=== PATIENT | male | born 1960 | race Caucasian/White ===

== ENCOUNTER → 2022-09-24 10:42 | Outpatient (CLI) | payer SELFPAY ==
[2022-09-24 11:06] LABS: Basophils % 0.5 % (0.1-2.0); Eosinophils # 0.2 K/mm3 (0.0-0.4); Hematocrit 46.7 % (42.0-52.0); Hemoglobin 14.9 g/dL (14.1-18.0); Lymphocytes # 2.4 K/mm3 (0.7-4.5); Lymphocytes % 30.1 % (10-50); Mean Corpuscular HGB Conc 31.9 g/dL (31.8-35.4); Mean Corpuscular Hemoglobin 30.3 pg (27.0-31.2); Mean Corpuscular Volume 95.1 fl (80-94); Monocytes # 0.4 K/mm3 (0.1-1.0); Monocytes % 5.1 % (1.7-9.3); Neutrophils # 4.9 K/mm3 (1.8-7.8); Neutrophils % 62.5 % (37.0-80.0); Platelet Count 229 K/mm3 (142-424); Red Blood Count 4.91 M/mm3 (4.60-6.20); Red Cell Distribution Width 14.3 % (11.5-17.5); White Blood Count 7.9 K/mm3 (4.8-10.8)
[2022-09-24 11:54] LABS: Erythrocyte Sedimentation Rate 48 mm/hr (0-20)
[2022-09-24 12:08] LABS: Alanine Aminotransferase 22 U/L (12-78); Albumin Level 3.9 g/dl (3.5-5.0); Albumin/Globulin Ratio 1.4 (1.1-1.8); Alkaline Phosphatase 108 U/L (38-126); Anion Gap 10.2 mEq/L (5-15); Aspartate Amino Transferase 21 U/L (17-59); Bilirubin,Total 0.4 mg/dl (0.2-1.3); Blood Urea Nitrogen 15 mg/dl (9-20); Calcium 8.8 mg/dl (8.4-10.2); Carbon Dioxide 26 mmol/L (22.0-30.0); Chloride 105 mmol/L (98-107); Estimated Glomerular Filt Rate 98 ml/min (>60); GFR (African American) 119 ML/MIN (>60); Globulin 2.8 g/dL (1.3-3.2); Glucose 149 mg/dl (74-100); Potassium 4.2 mmoL/L (3.5-5.1); Sodium 137 mmol/L (136-145); Total Protein,Serum 6.7 g/dl (6.3-8.2)
[2022-09-24 12:13] LABS: C-Reactive Protein 8.2 mg/L (0-4)
== END ==
PROVIDERS: PCP Family Medicine; Visit Provider Internal Medicine Rheumatology
DX: M05.8 Other rheumatoid arthritis with rheumatoid factor (principal); R53.83 Other fatigue; Z68.25 Body mass index [BMI] 25.0-25.9, adult; Z79.899 Other long term (current) drug therapy
CPT/HCPCS: 36415; 80053; 85025; 85651; 86140

== ENCOUNTER → 2022-10-26 07:26 | Outpatient (CLI) | payer OTHER, SELFPAY ==
[2022-10-26 08:16] LABS: Basophils % 0.4 % (0.1-2.0); Eosinophils # 0.2 K/mm3 (0.0-0.4); Eosinophils % 2.4 % (0.1-12.0); Hemoglobin 14.4 g/dL (14.1-18.0); Lymphocytes # 3.5 K/mm3 (0.7-4.5); Lymphocytes % 36.4 % (10-50); Mean Corpuscular HGB Conc 32.1 g/dL (31.8-35.4); Mean Corpuscular Hemoglobin 30.8 pg (27.0-31.2); Mean Corpuscular Volume 96.1 fl (80-94); Monocytes # 0.7 K/mm3 (0.1-1.0); Monocytes % 6.7 % (1.7-9.3); Neutrophils # 5.3 K/mm3 (1.8-7.8); Neutrophils % 54.1 % (37.0-80.0); Platelet Count 220 K/mm3 (142-424); Red Blood Count 4.68 M/mm3 (4.60-6.20); Red Cell Distribution Width 15.2 % (11.5-17.5); White Blood Count 9.7 K/mm3 (4.8-10.8)
[2022-10-26 08:29] LABS: Chloride 103 mmol/L (98-107); Potassium 4.2 mmoL/L (3.5-5.1); Sodium 138 mmol/L (136-145)
[2022-10-26 08:32] LABS: Alanine Aminotransferase 20 U/L (12-78); Albumin Level 3.9 g/dl (3.5-5.0); Albumin/Globulin Ratio 1.3 (1.1-1.8); Alkaline Phosphatase 102 U/L (38-126); Anion Gap 12.2 mEq/L (5-15); Aspartate Amino Transferase 18 U/L (17-59); Bilirubin,Total 0.4 mg/dl (0.2-1.3); Blood Urea Nitrogen 19 mg/dl (9-20); Calcium 9.1 mg/dl (8.4-10.2); Carbon Dioxide 27 mmol/L (22.0-30.0); Estimated Glomerular Filt Rate 98 ml/min (>60); GFR (African American) 119 ML/MIN (>60); Glucose 90 mg/dl (74-100); Total Protein,Serum 6.9 g/dl (6.3-8.2)
[2022-10-26 08:38] LABS: C-Reactive Protein 15.7 mg/L (0-4)
[2022-10-26 08:46] LABS: Erythrocyte Sedimentation Rate 18 mm/hr (0-20)
== END ==
PROVIDERS: PCP Family Medicine; Visit Provider Internal Medicine Rheumatology
DX: M05.8 Other rheumatoid arthritis with rheumatoid factor (principal); R53.83 Other fatigue; Z68.25 Body mass index [BMI] 25.0-25.9, adult; Z79.899 Other long term (current) drug therapy
CPT/HCPCS: 36415; 80053; 85025; 85651; 86140

== ENCOUNTER → 2022-11-26 07:26 | Outpatient (CLI) | payer OTHER, SELFPAY ==
[2022-11-26 09:49] LABS: Basophils % 0.3 % (0.1-2.0); Eosinophils # 0.2 K/mm3 (0.0-0.4); Eosinophils % 1.9 % (0.1-12.0); Hematocrit 47.7 % (42.0-52.0); Hemoglobin 15.3 g/dL (14.1-18.0); Lymphocytes # 3.2 K/mm3 (0.7-4.5); Lymphocytes % 26.9 % (10-50); Mean Corpuscular HGB Conc 32.1 g/dL (31.8-35.4); Mean Corpuscular Hemoglobin 31.5 pg (27.0-31.2); Mean Corpuscular Volume 97.9 fl (80-94); Mean Platelet Volume 7.8 fl (7.4-10.4); Monocytes # 0.7 K/mm3 (0.1-1.0); Monocytes % 5.9 % (1.7-9.3); Neutrophils # 7.7 K/mm3 (1.8-7.8); Platelet Count 269 K/mm3 (142-424); Red Blood Count 4.87 M/mm3 (4.60-6.20); Red Cell Distribution Width 14.7 % (11.5-17.5); White Blood Count 11.9 K/mm3 (4.8-10.8)
[2022-11-26 10:05] LABS: Chloride 99 mmol/L (98-107); Sodium 138 mmol/L (136-145)
[2022-11-26 10:07] LABS: Alanine Aminotransferase 23 U/L (12-78); Aspartate Amino Transferase 24 U/L (17-59); Blood Urea Nitrogen 14 mg/dl (9-20); Estimated Glomerular Filt Rate 137 ml/min (>60); GFR (African American) 166 ML/MIN (>60)
[2022-11-26 10:08] LABS: Albumin Level 3.9 g/dl (3.5-5.0); Albumin/Globulin Ratio 1.2 (1.1-1.8); Alkaline Phosphatase 107 U/L (38-126); Bilirubin,Total 0.3 mg/dl (0.2-1.3); Calcium 9.5 mg/dl (8.4-10.2); Carbon Dioxide 25 mmol/L (22.0-30.0); Globulin 3.2 g/dL (1.3-3.2); Glucose 77 mg/dl (74-100); Total Protein,Serum 7.1 g/dl (6.3-8.2)
== END ==
PROVIDERS: PCP Family Medicine; Visit Provider Internal Medicine Rheumatology
DX: M05.8 Other rheumatoid arthritis with rheumatoid factor (principal); R53.83 Other fatigue; E66.3 Overweight; Z68.25 Body mass index [BMI] 25.0-25.9, adult; Z79.899 Other long term (current) drug therapy
CPT/HCPCS: 36415; 80053; 85025; 86140

== ENCOUNTER → 2022-12-25 07:35 | Outpatient (CLI) | payer OTHER, SELFPAY ==
[2022-12-25 08:56] LABS: Basophils % 0.4 % (0.1-2.0); Eosinophils # 0.2 K/mm3 (0.0-0.4); Eosinophils % 1.7 % (0.1-12.0); Hematocrit 46.9 % (42.0-52.0); Hemoglobin 15.4 g/dL (14.1-18.0); Lymphocytes # 3.5 K/mm3 (0.7-4.5); Lymphocytes % 37.3 % (10-50); Mean Corpuscular HGB Conc 32.9 g/dL (31.8-35.4); Mean Corpuscular Hemoglobin 30.9 pg (27.0-31.2); Mean Corpuscular Volume 94.2 fl (80-94); Mean Platelet Volume 8.1 fl (7.4-10.4); Monocytes # 0.6 K/mm3 (0.1-1.0); Monocytes % 6.4 % (1.7-9.3); Neutrophils # 5.1 K/mm3 (1.8-7.8); Neutrophils % 54.3 % (37.0-80.0); Platelet Count 246 K/mm3 (142-424); Red Blood Count 4.98 M/mm3 (4.60-6.20); Red Cell Distribution Width 14.3 % (11.5-17.5); White Blood Count 9.4 K/mm3 (4.8-10.8)
[2022-12-25 09:06] LABS: Chloride 103 mmol/L (98-107); Potassium 3.8 mmoL/L (3.5-5.1); Sodium 140 mmol/L (136-145)
[2022-12-25 09:09] LABS: Alanine Aminotransferase 25 U/L (12-78); Albumin/Globulin Ratio 1.3 (1.1-1.8); Alkaline Phosphatase 96 U/L (38-126); Anion Gap 16.8 mEq/L (5-15); Aspartate Amino Transferase 23 U/L (17-59); Bilirubin,Total 0.4 mg/dl (0.2-1.3); Blood Urea Nitrogen 15 mg/dl (9-20); Carbon Dioxide 24 mmol/L (22.0-30.0); Estimated Glomerular Filt Rate 115 ml/min (>60); GFR (African American) 139 ML/MIN (>60)
[2022-12-25 09:10] LABS: Calcium 8.9 mg/dl (8.4-10.2); Glucose 113 mg/dl (74-100)
[2022-12-25 10:10] LABS: C-Reactive Protein 3.3 mg/L (0-4)
[2022-12-25 10:49] LABS: Erythrocyte Sedimentation Rate 69 mm/hr (0-20)
== END ==
PROVIDERS: PCP Family Medicine; Visit Provider Internal Medicine Rheumatology
DX: M05.8 Other rheumatoid arthritis with rheumatoid factor (principal); R53.83 Other fatigue; Z68.25 Body mass index [BMI] 25.0-25.9, adult; Z79.899 Other long term (current) drug therapy
CPT/HCPCS: 36415; 80053; 85025; 85651; 86140

== ENCOUNTER → 2023-03-10 08:09 | Outpatient (CLI) | payer OTHER, SELFPAY ==
[2023-03-10 09:09] LABS: Alanine Aminotransferase 39 U/L (12-78); Albumin Level 4.1 g/dl (3.5-5.0); Albumin/Globulin Ratio 1.3 (1.1-1.8); Alkaline Phosphatase 102 U/L (38-126); Anion Gap 13.8 mEq/L (5-15); Aspartate Amino Transferase 28 U/L (17-59); Bilirubin,Total 0.5 mg/dl (0.2-1.3); Blood Urea Nitrogen 18 mg/dl (9-20); Calcium 9.3 mg/dl (8.4-10.2); Carbon Dioxide 22 mmol/L (22.0-30.0); Chloride 109 mmol/L (98-107); Chol/HDL Ratio 1.8 (1-3.5); Cholesterol 107 mg/dl (140-200); Estimated Glomerular Filt Rate 114 ml/min (>60); GFR (African American) 138 ML/MIN (>60); Globulin 3.2 g/dL (1.3-3.2); Glucose 90 mg/dl (74-100); HDL Cholesterol 61 mg/dl (40-60); Potassium 3.8 mmoL/L (3.5-5.1); Sodium 141 mmol/L (136-145); Total Protein,Serum 7.3 g/dl (6.3-8.2); Triglycerides 96 mg/dl (30-150); VLDL Cholesterol 19 mg/dL (0-40)
[2023-03-10 09:20] LABS: Direct LDL Cholesterol 31.88 mg/dL (100-129)
[2023-03-10 09:49] LABS: Hematocrit 46.7 % (42.0-52.0); Hemoglobin 15.2 g/dL (14.1-18.0); Mean Corpuscular HGB Conc 32.6 g/dL (31.8-35.4); Mean Corpuscular Hemoglobin 31.6 pg (27.0-31.2); Mean Corpuscular Volume 96.9 fl (80-94); Platelet Count 197 K/mm3 (142-424); Red Blood Count 4.83 M/mm3 (4.60-6.20); Red Cell Distribution Width 14.1 % (11.5-17.5); White Blood Count 8.7 K/mm3 (4.8-10.8)
== END ==
PROVIDERS: PCP Family Medicine; Visit Provider Physician Assistant
DX: I25.10 Atherosclerotic heart disease of native coronary artery without angina pectoris (principal); E78.5 Hyperlipidemia, unspecified
CPT/HCPCS: 36415; 80053; 80061; 85014; 85018; 85048; 85049

== ENCOUNTER → 2023-04-01 00:23 | Outpatient (CLI) | payer OTHER, SELFPAY ==
[2023-04-01 00:57] LABS: Basophils # 0.1 K/mm3 (0-0.2); Basophils % 0.6 % (0.1-2.0); Eosinophils # 0.2 K/mm3 (0.0-0.4); Eosinophils % 1.8 % (0.1-12.0); Hematocrit 49.3 % (42.0-52.0); Hemoglobin 15.8 g/dL (14.1-18.0); Lymphocytes # 4.2 K/mm3 (0.7-4.5); Lymphocytes % 37.4 % (10-50); Mean Corpuscular Hemoglobin 31.7 pg (27.0-31.2); Mean Corpuscular Volume 99.1 fl (80-94); Mean Platelet Volume 7.9 fl (7.4-10.4); Monocytes # 0.9 K/mm3 (0.1-1.0); Monocytes % 7.9 % (1.7-9.3); Neutrophils # 5.9 K/mm3 (1.8-7.8); Neutrophils % 52.3 % (37.0-80.0); Platelet Count 231 K/mm3 (142-424); Red Blood Count 4.98 M/mm3 (4.60-6.20); Red Cell Distribution Width 14.3 % (11.5-17.5); White Blood Count 11.2 K/mm3 (4.8-10.8)
[2023-04-01 01:03] LABS: Chloride 109 mmol/L (98-107); Potassium 3.8 mmoL/L (3.5-5.1); Sodium 141 mmol/L (136-145)
[2023-04-01 01:05] LABS: Alanine Aminotransferase 33 U/L (12-78); Blood Urea Nitrogen 23 mg/dl (9-20); Estimated Glomerular Filt Rate 114 ml/min (>60); GFR (African American) 138 ML/MIN (>60)
[2023-04-01 01:06] LABS: Albumin Level 4.1 g/dl (3.5-5.0); Albumin/Globulin Ratio 1.2 (1.1-1.8); Alkaline Phosphatase 104 U/L (38-126); Anion Gap 15.8 mEq/L (5-15); Aspartate Amino Transferase 26 U/L (17-59); Bilirubin,Total 0.2 mg/dl (0.2-1.3); Calcium 8.9 mg/dl (8.4-10.2); Carbon Dioxide 20 mmol/L (22.0-30.0); Globulin 3.5 g/dL (1.3-3.2); Glucose 134 mg/dl (74-100); Total Protein,Serum 7.6 g/dl (6.3-8.2)
[2023-04-01 01:49] LABS: Erythrocyte Sedimentation Rate 15 mm/hr (0-20)
[2023-04-02 13:09] LABS: C-Reactive Protein 1.7 mg/L (0-4)
== END ==
LOC: LAB.DROPOF 00:24
PROVIDERS: PCP Family Medicine; Visit Provider Nurse Practitioner Women's Health
DX: D84.821 Immunodeficiency due to drugs (principal); M05.8 Other rheumatoid arthritis with rheumatoid factor; Z79.52 Long term (current) use of systemic steroids; Z79.899 Other long term (current) drug therapy
CPT/HCPCS: 80053; 85025; 85651; 86140

== ENCOUNTER 2023-05-07 16:40 | Inpatient (IN) | payer OTHER, SELFPAY ==
[2023-05-07] VITALS (9 sets, daily range): BP systolic 102–146; BP diastolic 51–86; PULSE 108–125; RESP 22–34; TEMP 37.3–37.8; O2SAT 90–95; BMI 26.9; BMI 27.0
--- NOTE | 2023-05-07 16:52 | ECG_ITS ---
APPROVED REPORT Exam: Resting ECG HR:124 bpm ECG Measurements Heart Rate 124 AXES MS 155 P 71 QRSd 90 QRS -90 QT 309 T 57 QTc 383 Conclusion SINUS TACHYCARDIA LOW QRS VOLTAGE IN EXTREMITY LEADS [QRS DEFLECTION < 0.5 mV IN LIMB LEADS] PATTERN CONSISTENT WITH PULMONARY DISEASE LEFT ANTERIOR FASCICULAR BLOCK [QRS AXIS <= -45, QR IN I, RS IN II] INFERIOR MYOCARDIAL INFARCTION , OF INDETERMINATE AGE [40+ ms Q WAVE AND/OR ST/T ABNORMALITY IN II/aVF] ABNORMAL ECG UNCONFIRMED REPORT Electronically signed by : Sherman Alejandra MD 05/08/2023 16:53:51
--- NOTE | 2023-05-07 17:03 | XR_ITS ---
PROCEDURE INFORMATION: Exam: XR Chest Exam date and time: 05/07/2023 5:16 PM Age: 62 years old Clinical indication: Cough and wheezing; Additional info: SOA. Smoker (unknown for how long) TECHNIQUE: Imaging protocol: Radiologic exam of the chest. Views: 2 views. COMPARISON: No relevant prior studies available. FINDINGS: Lungs: Dense consolidation is present in the right lower lobe. Left lung has no airspace consolidation. Pleural spaces: No pleural effusion. No pneumothorax. Heart/Mediastinum: Small hiatal hernia. Bones/joints: No fractures or bone lesions. IMPRESSION: Right lower lobe pneumonia. Consider postobstructive pneumonia. At a minimum, chest x-ray follow-up is recommended within 8 weeks to document resolution.
--- NOTE | 2023-05-07 17:10 | HMH.EDGENADL ---
Discharge Plan Disposition Patient Disposition: Admitted Chief Complaint: Shortness of Breath/Dyspnea Prescriptions Prescriptions: No Action allopurinol 300 mg tablet 300 mg PO rosuvastatin 20 mg tablet 20 mg PO metoprolol succinate 25 mg tablet extended release 24 hr PO propylthiouracil 50 mg tablet 50 mg PO diclofenac sodium 75 mg tablet,delayed release (DR/EC) 75 mg PO losartan 50 mg tablet 50 mg PO Patient Comments: TAKE 1 TABLET BY MOUTH ONCE DAILY clopidogrel 75 mg tablet 75 mg PO Patient Comments: TAKE 1 TABLET BY MOUTH ONCE DAILY aspirin 81 mg tablet,delayed release (DR/EC) 81 mg PO DAILY omeprazole 40 mg capsule,delayed release(DR/EC) 40 mg PO DAILY paroxetine HCl 20 mg tablet 20 mg PO DAILY trazodone 50 mg tablet 50 mg PO DAILY Referrals Follow up/Referrals: Zeus Aguilar [Primary Care Provider] - See instructions Clinical Impressions Clinical Impression: Sepsis due to pneumonia, Mediastinal adenopathy, Hernia, hiatal Discharge ED Provider: Curtis Copeland General Adult HPI General Chief complaint: Shortness of Breath/Dyspnea Stated complaint: weak, SOA,cough Time Seen by Provider: 05/07/23 16:50 History of Present Illness HPI narrative: Patient is a 62-year-old male with past medical history of COPD not on chronic oxygen who presents emergency department for evaluation of shortness of breath. History is obtained by patient at bedside. Patient was diagnosed with the flu on Wednesday and was prescribed Tamiflu for which she is compliant. Due to worsening shortness of breath and cough he presents here for continued evaluation. No other acute complaints at this time. Related Data Home Medications Medication Instructions Recorded Confirmed allopurinol 300 mg tablet 300 mg PO 07/21/22 07/21/22 aspirin 81 mg tablet,delayed 81 mg PO DAILY 07/21/22 07/21/22 release clopidogrel 75 mg tablet 75 mg PO 07/21/22 07/21/22 diclofenac sodium 75 mg 75 mg PO 07/21/22 07/21/22 tablet,delayed release losartan 50 mg tablet 50 mg PO 07/21/22 07/21/22 metoprolol succinate 25 mg tab PO 07/21/22 07/21/22 tablet,extended release 24 hr omeprazole 40 mg capsule,delayed 40 mg PO DAILY 07/21/22 07/21/22 release paroxetine HCl 20 mg tablet 20 mg PO DAILY 07/21/22 07/21/22 propylthiouracil 50 mg tablet 50 mg PO 07/21/22 07/21/22 rosuvastatin 20 mg tablet 20 mg PO 07/21/22 07/21/22 trazodone 50 mg tablet 50 mg PO DAILY 07/21/22 07/21/22 Allergies Allergy/AdvReac Type Severity Reaction Status Date / Time No Known Allergies Allergy Verified 07/21/22 14:58 [facility] Disclaimer: The information contained in this section may have been updated after the patient was seen, as this information can be updated by other users. Surgical History (Updated 07/21/22 @ 15:02 by FABIOLA Marie) History of colonoscopy History of heart artery stent Social History (Updated 07/21/22 @ 15:02 by Ani Lo [facility]) Smoking Status: Current every day smoker alcohol intake: never substance use type: denies use current occupational status: retired Travel in the last 8 weeks: None ROS Obtained: Yes Systems reviewed as appropriate & no additional complaints except as documented Physical Exam General General appearance: alert and in no apparent distress Head Head exam: atraumatic and normocephalic Eye Eye exam: Present PERRL and EOMI ENT ENT exam: Present mucous membranes moist Neck Neck exam: Present normal inspection Chest Chest inspection: Present normal inspection and symmetric chest wall rise Respiratory Respiratory exam: Present respiratory distress, wheezes, prolonged expiratory phase and other (Tachypnea) Cardiovascular Cardiovascular exam: Present normal rhythm and tachycardia Abdominal Exam Abdominal exam: Present soft; Absent tenderness Extremities Exam Extremities exam:
[2023-05-07 17:18] LABS: Basophils % 0.4 % (0.1-2.0); Eosinophils % 0.4 % (0.1-12.0); Hemoglobin 17.1 g/dL (14.1-18.0); Lymphocytes # 0.9 K/mm3 (0.7-4.5); Lymphocytes % 12.1 % (10-50); Mean Corpuscular HGB Conc 35.7 g/dL (31.8-35.4); Mean Corpuscular Hemoglobin 33.7 pg (27.0-31.2); Mean Corpuscular Volume 94.5 fl (80-94); Mean Platelet Volume 9.7 fl (7.4-10.4); Monocytes # 0.2 K/mm3 (0.1-1.0); Monocytes % 3.3 % (1.7-9.3); Neutrophils # 6.1 K/mm3 (1.8-7.8); Neutrophils % 83.9 % (37.0-80.0); Platelet Count 171 K/mm3 (142-424); Red Blood Count 5.09 M/mm3 (4.60-6.20); Red Cell Distribution Width 14.3 % (11.5-17.5); White Blood Count 7.3 K/mm3 (4.8-10.8)
[2023-05-07 17:30] LABS: Alanine Aminotransferase 117 U/L (12-78); Albumin Level 3.7 g/dl (3.5-5.0); Albumin/Globulin Ratio 0.9 (1.1-1.8); Alkaline Phosphatase 72 U/L (38-126); Anion Gap 16.9 mEq/L (5-15); Aspartate Amino Transferase 152 U/L (17-59); Bilirubin,Total 0.7 mg/dl (0.2-1.3); Blood Urea Nitrogen 27 mg/dl (9-20); Calcium 8.6 mg/dl (8.4-10.2); Carbon Dioxide 19 mmol/L (22.0-30.0); Chloride 97 mmol/L (98-107); Creatinine Clearance Estimated 89 mL/min (50-200); Estimated Glomerular Filt Rate 86 ml/min (>60); GFR (African American) 103 ML/MIN (>60); Globulin 4.2 g/dL (1.3-3.2); Glucose 128 mg/dl (74-100); Potassium 3.9 mmoL/L (3.5-5.1); Sodium 129 mmol/L (136-145); Total Protein,Serum 7.9 g/dl (6.3-8.2)
[2023-05-07 17:35] LABS: D-Dimer 4.04 ug/mL (0.0-0.5)
[2023-05-07 17:44] LABS: Troponin I 0.02 ng/ml (0.00-0.034)
[2023-05-07 17:58] LABS: T4 (Thyroxine) 7.1 ug/dl (5.53-11.0)
--- NOTE | 2023-05-07 17:59 | CT_ITS ---
PROCEDURE INFORMATION: Exam: CTA Chest With Contrast Exam date and time: 05/07/2023 6:31 PM Age: 62 years old Clinical indication: Shortness of breath; Additional info: Rll consolidation, flu +, tachy, dimer up TECHNIQUE: Imaging protocol: Computed tomographic angiography of the chest with contrast. Exam focused on the arteries. 3D rendering (Not supervised by radiologist): MIP and/or 3D reconstructed images were created by the technologist. Radiation optimization: All CT scans at this facility use at least one of these dose optimization techniques: automated exposure control; mA and/or kV adjustment per patient size (includes targeted exams where dose is matched to clinical indication); or iterative reconstruction. Contrast material: ISOVUE; Contrast volume: 70 ml; Contrast route: INTRAVENOUS (IV); REPORTING DATA: Count of CT and Cardiac NM exams in prior 12 months: This patient has received 0 known CTs and 0 known cardiac nuclear medicine studies in the 12 months prior to the current study. COMPARISON: CR XR CHEST 2V 05/07/2023 5:16 PM FINDINGS: Pulmonary arteries: No pulmonary artery embolism identified. Pulmonary artery evaluation is limited in the lung bases from motion. Main pulmonary artery is borderline dilated measuring 3.1 cm in diameter. Aorta: No aortic aneurysm. No aortic dissection or evidence of acute aortic abnormality. Mild calcified plaque along the included upper abdominal aorta. Lungs: Advanced upper lung predominant pulmonary emphysema. Extensive airspace opacities in the right lower lobe and airspace opacities in the posterior right upper lobe. Mild non-specific ground-glass opacity in the lingula. Scattered small calcified granulomata and right middle lobe 4 mm noncalcified nodule. Pleural spaces: Trivial pleural fluid on the right. No pneumothorax. Heart: Heart size is normal. No pericardial effusion. Coronary arteries: Coronary artery calcifications. Lymph nodes: Enlarged subcarinal lymph node measuring 2.4 cm in short axis dimension. Other mildly enlarged mediastinal and right hilar lymph nodes, measuring up to approximately 1.6 cm. Stomach and bowel: Stomach is within the lower chest in a large hiatal hernia. Greater curvature of the stomach lies superior to the lesser curvature suggesting organoaxial twist. Apparent gastric wall thickening although the stomach is nondistended. Approximately 1 cm radiopaque density at the GE junction, presumably ingested tablet. Bones/joints: No acute osseous abnormality or suspicious osseous lesion. Soft tissues: Unremarkable. Other findings: No acute abnormality in the included upper abdomen. IMPRESSION: 1. No pulmonary artery embolism identified. Pulmonary artery evaluation is limited in the lung bases from motion. 2. Extensive airspace opacities in the right lower lobe and in the posterior right upper lobe most compatible with pneumonia. Pulmonary emphysema. Trivial pleural fluid on the right. Recommend follow-up CT chest following treatment to ensure no underlying lung lesions. 3. Right hilar and mediastinal adenopathy. 4. Stomach is within the lower chest in a large hiatal hernia. Greater curvature of the stomach lies superior to the lesser curvature suggesting organoaxial twist. Apparent gastric wall thickening although the stomach is nondistended. Approximately 1 cm radiopaque density at the GE junction, presumably ingested tablet. 5. Other chronic and incidental findings as detailed above. COMMENTS: In the absence of a history or active diagnosis of lung cancer, it is recommended that this patient with emphysema be evaluated for enrollment in a low dose CT lung cancer screening program. THIS REPORT CONTAINS FINDINGS THAT MAY BE CRITI
[2023-05-07 18:04] LABS: VBG HCO3 17.2 mmol/L (23-30); VBG Oxygen Saturation 99.5 % (50-70); VBG PCO2 26.2 mmol/L (35-51); VBG PH 7.44 mmol/L (7.31-7.41); VBG PO2 183.4 mmol/L (28-40)
[2023-05-07 18:11] LABS: Thyroid Stimulating Hormone 0.67 uIU/mL (0.465-4.68)
[2023-05-07 18:35] LABS: Lactic Acid 2.7 mmol/L (0.7-2.1)
--- NOTE | 2023-05-07 18:48 | PC.NURSE ---
Pt voiced no needs at this time. Call light within reach.
[2023-05-07 18:50] LABS: Coronavirus 19, PCR Not Detected (NotDetected); Influenza A, PCR Not Detected (NotDetected); Influenza B, PCR Not Detected (NotDetected)
--- NOTE | 2023-05-07 19:16 | PC.NURSE ---
pt denies any n/v or abd pain, given PO fluids, tolerated well
[2023-05-07 20:34] LABS: Troponin I 0.03 ng/ml (0.00-0.034)
--- NOTE | 2023-05-07 20:34 | EXP.HP ---
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 COPD not on oxygen, HTN, CAD s/p stent who presented to emergency department for evaluation of shortness of breath. History is obtained by patient at bedside. Symptoms started on this week on Wednesday when patient was diagnosed with the flu and was prescribed Tamiflu. Due to worsening shortness of breath and cough he presents here for continued evaluation. Denied fever, chills, nauseas. No other acute complaints at this time. Admitted for further treatment. Attending attestation Patient was seen and evaluated at the bedside myself and apparently, agree with BELL RINGER note. Will need follow up on further lung imaging for possible lung cancer [facility] Disclaimer: The information contained in this section may have been updated after the patient was seen, as this information can be updated by other users. Medical History (Updated 05/08/23 @ 13:24 by Brent Carter MD) COPD (chronic obstructive pulmonary disease) Heart attack Hyperlipidemia Hypertension Rheumatoid arthritis Surgical History (Updated 07/21/22 @ 15:02 by FABIOLA Marie) History of colonoscopy History of heart artery stent Social History (Updated 05/07/23 @ 21:00 by Shelli Fish RN) Smoking Status: Current every day smoker alcohol intake: never substance use type: denies use current occupational status: employed and retired Travel in the last 8 weeks: None Review of Systems Review of Systems Review of systems:: pertinent systems reviewed and negative unless documented below Meds Home Medications and Allergies Home Medications Medication Instructions Recorded Confirmed Type aspirin 81 mg tablet,delayed 81 mg PO DAILY Blood Thinner 07/21/22 05/07/23 History release clopidogrel 75 mg tablet 75 mg PO DAILY Blood Thinner 07/21/22 05/07/23 History losartan 50 mg tablet 50 mg PO DAILY High Blood Pressure 07/21/22 05/07/23 History metoprolol succinate 25 mg 25 mg PO DAILY High Blood Pressure 07/21/22 05/07/23 History tablet,extended release 24 hr propylthiouracil 50 mg tablet 50 mg PO DAILY THYROID 07/21/22 05/07/23 History rosuvastatin 20 mg tablet 20 mg PO HS Cholesterol 07/21/22 05/08/23 History adalimumab 40 mg/0.4 mL 40 mg SQ QOW Arthritis 05/07/23 05/08/23 History subcutaneous pen kit (Humira(CF) Pen) folic acid 1 mg tablet 1 mg PO DAILY Supplement 05/07/23 05/07/23 History meloxicam 15 mg tablet 15 mg PO DAILY Arthritis 05/07/23 05/08/23 History prednisone 5 mg tablet 5 mg PO DAILY Arthritis 05/07/23 05/08/23 History methotrexate sodium 2.5 mg tablet 20 mg PO MO Arthritis 05/08/23 05/08/23 History New Prescriptions to Start Prescriptions: Allergies Allergy/AdvReac Type Severity Reaction Status Date / Time No Known Allergies Allergy Verified 07/21/22 14:58 Exam Data for Last 24 hours Vital signs and Labs for Last 24 Hours: Temp Pulse Resp BP Pulse Ox O2 Del Method O2 Flow Rate 100.1 F H 114 H 32 H 124/73 95 Nasal Cannula 2 05/07/23 20:20 05/07/23 20:20 05/07/23 20:20 05/07/23 20:20 05/07/23 18:41 05/07/23 20:20 05/07/23 20:20 Laboratory Results - last 24 hr 05/07/23 16:50: WBC 7.3, RBC 5.09, Hgb 17.1, Hct 48.0, MCV 94.5 H, MCH 33.7 H, MCHC 35.7 H, RDW 14.3, Plt Count 171, MPV 9.7, Neut % (Auto) 83.9 H, Lymph % (Auto) 12.1, [place] % (Auto) 3.3, Eos % (Auto) 0.4, Baso % (Auto) 0.4, Neut # (Auto) 6.1, Lymph # (Auto) 0.9, [place] # (Auto) 0.2, Eos # (Auto) 0.0, Baso # (Auto) 0.0, D-Dimer 4.04 H, Sodium 129 L, Potassium 3.9, Chloride 97 L, Carbon Dioxide 19 L, Anion Gap 16.9 H, BUN 27 H, Creatinine 0.90, Estimated Creat Clear 89, Estimated GFR 86, Est GFR ( Amer) 103, Glucose 128 H, Calcium 8.6, Total Bilirubin 0.7, AST 152 H, ALT 117 H, Alkaline Phosphatase 72, Troponin I 0.02, C-Reactiv
--- NOTE | 2023-05-07 20:40 | PC.NURSE ---
Patient arrived to floor via wheelchair at 20:39.
[2023-05-07 22:12] LABS: Reflex Lactic Add Lactic Reflex
[2023-05-07 23:06] LABS: Troponin I 0.02 ng/ml (0.00-0.034)
[2023-05-07 23:42] LABS: Lactic Acid Follow Up (RFLX 1) 1.8 mmol/L (0.7-2.1)
[2023-05-08] VITALS (11 sets, daily range): BP systolic 92–113; BP diastolic 57–72; PULSE 85–136; RESP 18–24; TEMP 36.6–37; O2SAT 89–95; BMI 27.0
--- NOTE | 2023-05-08 05:04 | PC.NURSE ---
Since arriving to the floor the patient has been able to rest. We did have to increase his O2 to 3L NC to maintain stats above 90. Patient dose drop rather quickly with any activity and movement. Patient complained of a headache but with medication it has gotten better. No other issues noted by patient
[2023-05-08 07:06] LABS: Basophils % 0.4 % (0.1-2.0); Eosinophils % 0.3 % (0.1-12.0); Hematocrit 43.9 % (42.0-52.0); Hemoglobin 15.4 g/dL (14.1-18.0); Lymphocytes # 0.6 K/mm3 (0.7-4.5); Lymphocytes % 17.2 % (10-50); Mean Corpuscular HGB Conc 35.1 g/dL (31.8-35.4); Mean Corpuscular Hemoglobin 33.9 pg (27.0-31.2); Mean Corpuscular Volume 96.7 fl (80-94); Mean Platelet Volume 9.3 fl (7.4-10.4); Monocytes # 0.1 K/mm3 (0.1-1.0); Neutrophils % 79.2 % (37.0-80.0); Platelet Count 138 K/mm3 (142-424); Red Blood Count 4.54 M/mm3 (4.60-6.20); Red Cell Distribution Width 14.6 % (11.5-17.5); White Blood Count 3.8 K/mm3 (4.8-10.8)
[2023-05-08 07:15] LABS: Alanine Aminotransferase 118 U/L (12-78); Albumin/Globulin Ratio 0.9 (1.1-1.8); Alkaline Phosphatase 54 U/L (38-126); Anion Gap 12.7 mEq/L (5-15); Aspartate Amino Transferase 167 U/L (17-59); Bilirubin,Total 0.6 mg/dl (0.2-1.3); Blood Urea Nitrogen 20 mg/dl (9-20); Calcium 8.3 mg/dl (8.4-10.2); Carbon Dioxide 23 mmol/L (22.0-30.0); Chloride 99 mmol/L (98-107); Creatinine Clearance Estimated 90 mL/min (50-200); Estimated Glomerular Filt Rate 86 ml/min (>60); GFR (African American) 103 ML/MIN (>60); Globulin 3.4 g/dL (1.3-3.2); Glucose 116 mg/dl (74-100); Potassium 3.7 mmoL/L (3.5-5.1); Sodium 131 mmol/L (136-145); Total Protein,Serum 6.4 g/dl (6.3-8.2)
[2023-05-08 08:09] LABS: Erythrocyte Sedimentation Rate 81 mm/hr (0-20)
--- NOTE | 2023-05-08 08:39 | EXP.PHA.CONS ---
Pharmacy Consult Date: 05/08/23 Time: 08:39 Referring provider: DR MADISON Reason for Consult:: VANCOMYCIN DOSING CONSULT Allergies Allergy/AdvReac Type Severity Reaction Status Date / Time No Known Allergies Allergy Verified 07/21/22 14:58 Home Medications Medication Instructions Recorded Confirmed Type aspirin 81 mg tablet,delayed 81 mg PO DAILY 07/21/22 05/07/23 History release clopidogrel 75 mg tablet 75 mg PO DAILY 07/21/22 05/07/23 History losartan 50 mg tablet 50 mg PO DAILY 07/21/22 05/07/23 History metoprolol succinate 25 mg 25 mg PO DAILY 07/21/22 05/07/23 History tablet,extended release 24 hr propylthiouracil 50 mg tablet 50 mg PO DAILY 07/21/22 05/07/23 History rosuvastatin 20 mg tablet 20 mg PO DAILY 07/21/22 05/07/23 History adalimumab 40 mg/0.4 mL See Rx Instructions .Route .COMPLEX 05/07/23 05/07/23 History subcutaneous pen kit (Humira(CF) Pen) folic acid 1 mg tablet 1 mg PO DAILY 05/07/23 05/07/23 History meloxicam 15 mg tablet 15 mg PO DAILY 05/07/23 05/07/23 History prednisone 5 mg tablet 5 mg PO DAILY 05/07/23 05/07/23 History New Prescriptions to Start Prescriptions: Height: 1.75 m Weight: 82.809 kg Laboratory Results:: Laboratory Results - last 24 hr 05/07/23 16:50: WBC 7.3, RBC 5.09, Hgb 17.1, Hct 48.0, MCV 94.5 H, MCH 33.7 H, MCHC 35.7 H, RDW 14.3, Plt Count 171, MPV 9.7, Neut % (Auto) 83.9 H, Lymph % (Auto) 12.1, [place] % (Auto) 3.3, Eos % (Auto) 0.4, Baso % (Auto) 0.4, Neut # (Auto) 6.1, Lymph # (Auto) 0.9, [place] # (Auto) 0.2, Eos # (Auto) 0.0, Baso # (Auto) 0.0, D-Dimer 4.04 H, Sodium 129 L, Potassium 3.9, Chloride 97 L, Carbon Dioxide 19 L, Anion Gap 16.9 H, BUN 27 H, Creatinine 0.90, Estimated Creat Clear 89, Estimated GFR 86, Est GFR ( Amer) 103, Glucose 128 H, Calcium 8.6, Total Bilirubin 0.7, AST 152 H, ALT 117 H, Alkaline Phosphatase 72, Troponin I 0.02, C-Reactive Protein 344.0 H, Total Protein 7.9, Albumin 3.7, Globulin 4.2 H, Albumin/Globulin Ratio 0.9 L, TSH 0.67, Thyroxine (T4) 7.1 05/07/23 17:45: VBG pH 7.44 H, VBG pCO2 26.2 L, VBG pO2 183.4 H, VBG HCO3 17.2 L, VBG Total CO2 18.0 L, VBG O2 Saturation 99.5 H, VBG Base Excess -7.0 L 05/07/23 18:10: Lactate 2.7 H 05/07/23 18:47: SARS-CoV-2 (PCR) Not detected, Influenza A Untype (PCR) Not detected, Influenza Type B (PCR) Not detected 05/07/23 20:00: Troponin I 0.03 05/07/23 22:30: Lactate 1.8, Troponin I 0.02 05/08/23 06:28: WBC 3.8 L D, RBC 4.54 L, Hgb 15.4, Hct 43.9, MCV 96.7 H, MCH 33.9 H, MCHC 35.1, RDW 14.6, Plt Count 138 L, MPV 9.3, Neut % (Auto) 79.2, Lymph % (Auto) 17.2, [place] % (Auto) 3.0, Eos % (Auto) 0.3, Baso % (Auto) 0.4, Neut # (Auto) 3.0, Lymph # (Auto) 0.6 L, [place] # (Auto) 0.1, Eos # (Auto) 0.0, Baso # (Auto) 0.0, ESR 81 H, Sodium 131 L, Potassium 3.7, Chloride 99, Carbon Dioxide 23, Anion Gap 12.7, BUN 20 D, Creatinine 0.90, Estimated Creat Clear 90, Estimated GFR 86, Est GFR ( Amer) 103, Glucose 116 H, Calcium 8.3 L, Total Bilirubin 0.6, AST 167 H, ALT 118 H, Alkaline Phosphatase 54, Total Protein 6.4, Albumin 3.0 L D, Globulin 3.4 H, Albumin/Globulin Ratio 0.9 L Medical History: Medical History (Updated 05/08/23 @ 07:22 by Carlos Salas APRN) COPD (chronic obstructive pulmonary disease) Heart attack Hyperlipidemia Hypertension Rheumatoid arthritis Assessment and Plan Assessment and plan all Dx Assessment and Plan for all problems:: Pharmacokinetic dosing service Objective: Age: 62 yo Serum creatinine: 0.9 mg/dL Height: 68.9 Inches Weight (kg): 82.809 Diagnosis: PNEUMONIA Assessment: IBW (kg): 70.47 Dosing wt(kg): 82.809 Estimated Creatinine clearance (ml/min): 84.8 CRCL method: Cockcroft and Gault using ibw(default). Drug selected: Vancomycin Vd (liters): 58.0 (factor used: 0.7 L/kg) Marquez (hr-1): 0.075 Half life (hrs): 9.24 CLvanco=?? 4.350 L/hr Recomm
--- NOTE | 2023-05-08 11:05 | HMH.PHAINT1 ---
Pharmacy Intervention Comments: MEDICATION RECONCILIATION COMPLETE USING EXTERNAL PHARMACY FILL HISTORY, CONFIRMED METHOTREXATE DOSE/FREQUENCY WITH PATIENT.
--- NOTE | 2023-05-08 12:47 | ECG_ITS ---
APPROVED REPORT Exam: Resting ECG HR:124 bpm ECG Measurements Heart Rate 124 AXES IN 183 P 61 QRSd 89 QRS 36 QT 298 T 28 QTc 372 Conclusion SINUS TACHYCARDIA LOW QRS VOLTAGE IN EXTREMITY LEADS [QRS DEFLECTION < 0.5 mV IN LIMB LEADS] ABNORMAL RHYTHM ECG UNCONFIRMED REPORT Electronically signed by : Sherman Alejandra MD 05/08/2023 16:52:23
--- NOTE | 2023-05-08 12:59 | PC.NURSE ---
MD Baxter notified about pt's Sinus tachycardia.
--- NOTE | 2023-05-08 13:02 | XR_ITS ---
PROCEDURE INFORMATION: Exam: XR Chest Exam date and time: 05/08/2023 1:10 PM Age: 62 years old Clinical indication: Cough; Additional info: Pulmonary edema? TECHNIQUE: Imaging protocol: Radiologic exam of the chest. Views: 1 view. COMPARISON: CR XR CHEST 2V 05/07/2023 5:16 PM FINDINGS: Lungs: Persistent increased region of consolidation right lower lobe. Patchy interstitial infiltrates again demonstrated. Findings may have slightly progressed compared with the previous study Pleural spaces: Unremarkable. No pleural effusion. No pneumothorax. Heart/Mediastinum: Moderate hiatal hernia Bones/joints: Unremarkable. IMPRESSION: Right lower lobe pneumonia. Findings appear to have minimally progressed.
--- NOTE | 2023-05-08 13:21 | EXP.SURG.CON ---
History of Present Illness *Admission Date: 05/07/23 *Reason for visit:: HH with possible gastric volvulus *History of present illness: 62yo male with the following finding on CT: Stomach is within the lower chest in a large hiatal hernia. Greater curvature of the stomach lies superior to the lesser curvature suggesting organoaxial twist. Apparent gastric wall thickening although the stomach is nondistended. 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 COPD not on oxygen, HTN, CAD s/p stent who presented to emergency department for evaluation of shortness of breath. History is obtained by patient at bedside. Symptoms started on this week on Wednesday when patient was diagnosed with the flu and was prescribed Tamiflu. Due to worsening shortness of breath and cough he presents here for continued evaluation. Denied fever, chills, nauseas. No other acute complaints at this time. Admitted for further treatment. [facility] Disclaimer: The information contained in this section may have been updated after the patient was seen, as this information can be updated by other users. Medical History (Updated 05/08/23 @ 13:24 by Brent Carter MD) COPD (chronic obstructive pulmonary disease) Heart attack Hyperlipidemia Hypertension Rheumatoid arthritis Surgical History (Updated 07/21/22 @ 15:02 by FABIOLA Marie) History of colonoscopy History of heart artery stent Social History (Updated 05/07/23 @ 21:00 by Shelli Fish RN) Smoking Status: Current every day smoker alcohol intake: never substance use type: denies use current occupational status: employed and retired Travel in the last 8 weeks: None Meds Home Medications and Allergies Home Medications Medication Instructions Recorded Confirmed Type aspirin 81 mg tablet,delayed 81 mg PO DAILY Blood Thinner 07/21/22 05/07/23 History release clopidogrel 75 mg tablet 75 mg PO DAILY Blood Thinner 07/21/22 05/07/23 History losartan 50 mg tablet 50 mg PO DAILY High Blood Pressure 07/21/22 05/07/23 History metoprolol succinate 25 mg 25 mg PO DAILY High Blood Pressure 07/21/22 05/07/23 History tablet,extended release 24 hr propylthiouracil 50 mg tablet 50 mg PO DAILY THYROID 07/21/22 05/07/23 History rosuvastatin 20 mg tablet 20 mg PO HS Cholesterol 07/21/22 05/08/23 History adalimumab 40 mg/0.4 mL 40 mg SQ QOW Arthritis 05/07/23 05/08/23 History subcutaneous pen kit (Humira(CF) Pen) folic acid 1 mg tablet 1 mg PO DAILY Supplement 05/07/23 05/07/23 History meloxicam 15 mg tablet 15 mg PO DAILY Arthritis 05/07/23 05/08/23 History prednisone 5 mg tablet 5 mg PO DAILY Arthritis 05/07/23 05/08/23 History methotrexate sodium 2.5 mg tablet 20 mg PO MO Arthritis 05/08/23 05/08/23 History New Prescriptions to Start Prescriptions: Allergies Allergy/AdvReac Type Severity Reaction Status Date / Time No Known Allergies Allergy Verified 07/21/22 14:58 Exam (Inpt) Vital signs and Labs for Last 24 Hours: Temp Pulse Resp BP Pulse Ox O2 Del Method O2 Flow Rate 98.2 F 130 H 24 109/57 L 94 L Nasal Cannula 3 05/08/23 11:47 05/08/23 12:00 05/08/23 11:47 05/08/23 11:47 05/08/23 11:47 05/08/23 11:40 05/08/23 11:40 Laboratory Results - last 24 hr 05/07/23 16:50: WBC 7.3, RBC 5.09, Hgb 17.1, Hct 48.0, MCV 94.5 H, MCH 33.7 H, MCHC 35.7 H, RDW 14.3, Plt Count 171, MPV 9.7, Neut % (Auto) 83.9 H, Lymph % (Auto) 12.1, [place] % (Auto) 3.3, Eos % (Auto) 0.4, Baso % (Auto) 0.4, Neut # (Auto) 6.1, Lymph # (Auto) 0.9, [place] # (Auto) 0.2, Eos # (Auto) 0.0, Baso # (Auto) 0.0, D-Dimer 4.04 H, Sodium 129 L, Potassium 3.9, Chloride 97 L, Carbon Dioxide 19 L, Anion Gap 16.9 H, BUN 27 H, Creatinine 0.90, Estimated Creat Clear 89, Estimated GFR 86, Est GFR ( Amer) 103, Glucose 128 H, Calcium 8.6, Total Bilirubin 0.7, AST 152 H, ALT 117 H, Alkaline Phosphatase 72, Troponin I 0.02, C-Reac
--- NOTE | 2023-05-08 14:10 | EXP.PN ---
Subjective *Date: 05/08/23 *Time: 14:38 Interval history: Patient was seen and evaluated at the bedside. denies chest pain, but has shortness of breath, denied nausea, vomiting, abdominal pain. Exam Data for Last 24 hours Vital signs and Labs for Last 24 Hours: Temp Pulse Resp BP Pulse Ox O2 Del Method O2 Flow Rate 98.2 F 130 H 24 109/57 L 94 L Nasal Cannula 3 05/08/23 11:47 05/08/23 12:00 05/08/23 11:47 05/08/23 11:47 05/08/23 11:47 05/08/23 13:00 05/08/23 13:00 Laboratory Results - last 24 hr 05/07/23 16:50: WBC 7.3, RBC 5.09, Hgb 17.1, Hct 48.0, MCV 94.5 H, MCH 33.7 H, MCHC 35.7 H, RDW 14.3, Plt Count 171, MPV 9.7, Neut % (Auto) 83.9 H, Lymph % (Auto) 12.1, [place] % (Auto) 3.3, Eos % (Auto) 0.4, Baso % (Auto) 0.4, Neut # (Auto) 6.1, Lymph # (Auto) 0.9, [place] # (Auto) 0.2, Eos # (Auto) 0.0, Baso # (Auto) 0.0, D-Dimer 4.04 H, Sodium 129 L, Potassium 3.9, Chloride 97 L, Carbon Dioxide 19 L, Anion Gap 16.9 H, BUN 27 H, Creatinine 0.90, Estimated Creat Clear 89, Estimated GFR 86, Est GFR ( Amer) 103, Glucose 128 H, Calcium 8.6, Total Bilirubin 0.7, AST 152 H, ALT 117 H, Alkaline Phosphatase 72, Troponin I 0.02, C-Reactive Protein 344.0 H, Total Protein 7.9, Albumin 3.7, Globulin 4.2 H, Albumin/Globulin Ratio 0.9 L, TSH 0.67, Thyroxine (T4) 7.1 05/07/23 17:45: VBG pH 7.44 H, VBG pCO2 26.2 L, VBG pO2 183.4 H, VBG HCO3 17.2 L, VBG Total CO2 18.0 L, VBG O2 Saturation 99.5 H, VBG Base Excess -7.0 L 05/07/23 18:10: Lactate 2.7 H 05/07/23 18:47: SARS-CoV-2 (PCR) Not detected, Influenza A Untype (PCR) Not detected, Influenza Type B (PCR) Not detected 05/07/23 20:00: Troponin I 0.03 05/07/23 22:30: Lactate 1.8, Troponin I 0.02 05/08/23 06:28: WBC 3.8 L D, RBC 4.54 L, Hgb 15.4, Hct 43.9, MCV 96.7 H, MCH 33.9 H, MCHC 35.1, RDW 14.6, Plt Count 138 L, MPV 9.3, Neut % (Auto) 79.2, Lymph % (Auto) 17.2, [place] % (Auto) 3.0, Eos % (Auto) 0.3, Baso % (Auto) 0.4, Neut # (Auto) 3.0, Lymph # (Auto) 0.6 L, [place] # (Auto) 0.1, Eos # (Auto) 0.0, Baso # (Auto) 0.0, ESR 81 H, Sodium 131 L, Potassium 3.7, Chloride 99, Carbon Dioxide 23, Anion Gap 12.7, BUN 20 D, Creatinine 0.90, Estimated Creat Clear 90, Estimated GFR 86, Est GFR ( Amer) 103, Glucose 116 H, Calcium 8.3 L, Total Bilirubin 0.6, AST 167 H, ALT 118 H, Alkaline Phosphatase 54, Total Protein 6.4, Albumin 3.0 L D, Globulin 3.4 H, Albumin/Globulin Ratio 0.9 L I & O for Last 24 hours: Intake & Output 05/05/23 05/06/23 05/07/23 05/08/23 23:59 23:59 23:59 23:59 Intake Total 580 / 580 Output Total 200 / 500 300 / 300 Balance -200 / -500 280 / 280 Weight 82.752 kg 82.809 kg Constitutional Constitutional: no acute distress *Routine HEENT Exam Head: Present normocephalic Eye: Present EOMI and PERRL ENT: Present mucous membranes moist *Routine Neck Exam Neck: Present supple; Absent lymphadenopathy *Routine Respiratory Exam Respiratory: Present rales and rhonchi *Routine Cardiovascular Exam Cardiovascular: Present RRR *Routine Abdominal Exam Abdominal: Present soft and normoactive bowel sounds; Absent tenderness *Routine Extremities Exam Extremities: Absent cyanosis, clubbing or edema *Routine Skin Exam Skin: Present warm; Absent rash *Routine Neurological Exam Neurological: Present alert and oriented X3 Assessment and Plan *Assessment and plan (1) Right lower lobe pneumonia: Status: Acute Qualifiers: Pneumonia type: due to unspecified organism Qualified Code(s): J18.9 - Pneumonia, unspecified organism Category: Medical Code(s): J18.9 - Pneumonia, unspecified organism (2) Mediastinal adenopathy: Status: Acute Category: Medical Code(s): R59.0 - Localized enlarged lymph nodes (3) Hyponatremia: Status: Acute Category: Medical Code(s): E87.1 - Hypo-osmolality and hyponatremia (4) Elevated C-reactive protein (CRP): Status: Acute Category: Medical Code(s): R79.82 - Elevate
--- NOTE | 2023-05-08 14:22 | CT_ITS ---
PROCEDURE INFORMATION: Exam: CT Abdomen And Pelvis Without Contrast Exam date and time: 05/08/2023 2:44 PM Age: 62 years old Clinical indication: Abdominal pain; Generalized; Additional info: Possible gastric volvuls? TECHNIQUE: Imaging protocol: Computed tomography of the abdomen and pelvis without contrast. Radiation optimization: All CT scans at this facility use at least one of these dose optimization techniques: automated exposure control; mA and/or kV adjustment per patient size (includes targeted exams where dose is matched to clinical indication); or iterative reconstruction. REPORTING DATA: Count of CT and Cardiac NM exams in prior 12 months: This patient has received [address] and 0 known cardiac nuclear medicine studies in the 12 months prior to the current study. COMPARISON: CT ANGIO CHEST PE PROTOCOL 05/07/2023 6:31 PM FINDINGS: Lungs: Right lower lobe pneumonia with accompanying regions of atelectasis . Pleural spaces: Trace right pleural effusion. Diaphragm: Incomplete visualization of the moderate to large hiatal hernia. Liver: Normal. No mass. Gallbladder and bile ducts: Gallbladder unremarkable Pancreas: Pancreas unremarkable Spleen: Splenic granulomas Adrenal glands: Adrenal glands unremarkable. Kidneys and ureters: Perinephric stranding. Findings nonspecific and may reflect acute versus chronic inflammatory change. Stomach and bowel: Previously demonstrated findings suggestive of orgnaoaxial volvulus partially visualized on the current study. Colonic diverticulosis. No evidence of diverticulitis. Presumed pill fragments demonstrated within the colon Appendix: No evidence of appendicitis. Intraperitoneal space: Unremarkable. No free air. No significant fluid collection. Vasculature: Scattered regions of atherosclerotic vascular calcification within the abdominal aorta and common iliac arteries. Lymph nodes: Unremarkable. No enlarged lymph nodes. Urinary bladder: Unremarkable as visualized. Reproductive: Unremarkable as visualized. Bones/joints: Unremarkable. No acute fracture. Soft tissues: Fat filled right inguinal hernia. Postoperative changes consistent with left inguinal hernia repair. IMPRESSION: 1. Previously demonstrated findings suggestive of orgnaoaxial volvulus partially visualized on the current study. 2. Please see above report for discussion of nonacute findings.
--- NOTE | 2023-05-08 16:42 | EXP.PN ---
Subjective *Date: 05/08/23 *Time: 16:42 Exam Data for Last 24 hours Vital signs and Labs for Last 24 Hours: Temp Pulse Resp BP Pulse Ox O2 Del Method O2 Flow Rate 98.1 F 107 H 18 94/61 L 95 Nasal Cannula 4.5 05/08/23 15:56 05/08/23 15:56 05/08/23 15:56 05/08/23 15:56 05/08/23 15:56 05/08/23 15:56 05/08/23 15:56 Laboratory Results - last 24 hr 05/07/23 16:50: WBC 7.3, RBC 5.09, Hgb 17.1, Hct 48.0, MCV 94.5 H, MCH 33.7 H, MCHC 35.7 H, RDW 14.3, Plt Count 171, MPV 9.7, Neut % (Auto) 83.9 H, Lymph % (Auto) 12.1, [place] % (Auto) 3.3, Eos % (Auto) 0.4, Baso % (Auto) 0.4, Neut # (Auto) 6.1, Lymph # (Auto) 0.9, [place] # (Auto) 0.2, Eos # (Auto) 0.0, Baso # (Auto) 0.0, D-Dimer 4.04 H, Sodium 129 L, Potassium 3.9, Chloride 97 L, Carbon Dioxide 19 L, Anion Gap 16.9 H, BUN 27 H, Creatinine 0.90, Estimated Creat Clear 89, Estimated GFR 86, Est GFR ( Amer) 103, Glucose 128 H, Calcium 8.6, Total Bilirubin 0.7, AST 152 H, ALT 117 H, Alkaline Phosphatase 72, Troponin I 0.02, C-Reactive Protein 344.0 H, Total Protein 7.9, Albumin 3.7, Globulin 4.2 H, Albumin/Globulin Ratio 0.9 L, TSH 0.67, Thyroxine (T4) 7.1 05/07/23 17:45: VBG pH 7.44 H, VBG pCO2 26.2 L, VBG pO2 183.4 H, VBG HCO3 17.2 L, VBG Total CO2 18.0 L, VBG O2 Saturation 99.5 H, VBG Base Excess -7.0 L 05/07/23 18:10: Lactate 2.7 H 05/07/23 18:47: SARS-CoV-2 (PCR) Not detected, Influenza A Untype (PCR) Not detected, Influenza Type B (PCR) Not detected 05/07/23 20:00: Troponin I 0.03 05/07/23 22:30: Lactate 1.8, Troponin I 0.02 05/08/23 06:28: WBC 3.8 L D, RBC 4.54 L, Hgb 15.4, Hct 43.9, MCV 96.7 H, MCH 33.9 H, MCHC 35.1, RDW 14.6, Plt Count 138 L, MPV 9.3, Neut % (Auto) 79.2, Lymph % (Auto) 17.2, [place] % (Auto) 3.0, Eos % (Auto) 0.3, Baso % (Auto) 0.4, Neut # (Auto) 3.0, Lymph # (Auto) 0.6 L, [place] # (Auto) 0.1, Eos # (Auto) 0.0, Baso # (Auto) 0.0, ESR 81 H, Sodium 131 L, Potassium 3.7, Chloride 99, Carbon Dioxide 23, Anion Gap 12.7, BUN 20 D, Creatinine 0.90, Estimated Creat Clear 90, Estimated GFR 86, Est GFR ( Amer) 103, Glucose 116 H, Calcium 8.3 L, Total Bilirubin 0.6, AST 167 H, ALT 118 H, Alkaline Phosphatase 54, Total Protein 6.4, Albumin 3.0 L D, Globulin 3.4 H, Albumin/Globulin Ratio 0.9 L I & O for Last 24 hours: Intake & Output 05/05/23 05/06/23 05/07/23 05/08/23 23:59 23:59 23:59 23:59 Intake Total 580 / 580 Output Total 200 / 500 300 / 300 Balance -200 / -500 280 / 280 Weight 82.752 kg 82.809 kg Assessment and Plan *Assessment and plan (1) Gastric volvulus: Status: Acute Category: Medical Code(s): K31.89 - Other diseases of stomach and duodenum Plan recieved call back from [facility], they reviewed volvulus images and recommended patient gets treatment for PNA first and follow up in office, images were reviewed by CT surgeon at [facility]
--- NOTE | 2023-05-08 20:42 | EXP.DC.SUM ---
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 COPD not on oxygen, HTN, CAD s/p stent who presented to emergency department for evaluation of shortness of breath. History is obtained by patient at bedside. Symptoms started on this week on Wednesday when patient was diagnosed with the flu and was prescribed Tamiflu. Due to worsening shortness of breath and cough he presents here for continued evaluation. Denied fever, chills, nauseas. No other acute complaints at this time. Admitted for further treatment. Attending attestation Patient was seen and evaluated at the bedside myself and apparently, agree with FINGERER note. 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 COPD not on oxygen, HTN, CAD s/p stent who presented to emergency department for evaluation of shortness of breath. History is obtained by patient at bedside. Symptoms started on this week on Wednesday when patient was diagnosed with the flu and was prescribed Tamiflu. Due to worsening shortness of breath and cough he presents here for continued evaluation. Denied fever, chills, nauseas. No other acute complaints at this time. Admitted for further treatment. Attending attestation Patient was seen and evaluated at the bedside myself and apparently, agree with FINGERER note. Will need follow up on further lung imaging for possible lung cancer Possible gastric volvulus with CT finding of: Stomach is within the lower chest in a large hiatal hernia. The greater curvature of the stomach lies superior to the lesser curvature suggesting organoaxial twist. Apparent gastric wall thickening although the stomach is nondistended. Exam Data for Last 24 hours Vital signs and Labs for Last 24 Hours: Temp Pulse Resp BP Pulse Ox O2 Del Method O2 Flow Rate 98.6 F 127 H 20 113/61 90 L Nasal Cannula 3 05/08/23 20:00 05/08/23 20:00 05/08/23 20:00 05/08/23 20:00 05/08/23 20:00 05/08/23 20:00 05/08/23 20:00 Laboratory Results - last 24 hr 05/07/23 22:30: Lactate 1.8, Troponin I 0.02 05/08/23 06:28: WBC 3.8 L D, RBC 4.54 L, Hgb 15.4, Hct 43.9, MCV 96.7 H, MCH 33.9 H, MCHC 35.1, RDW 14.6, Plt Count 138 L, MPV 9.3, Neut % (Auto) 79.2, Lymph % (Auto) 17.2, [place] % (Auto) 3.0, Eos % (Auto) 0.3, Baso % (Auto) 0.4, Neut # (Auto) 3.0, Lymph # (Auto) 0.6 L, [place] # (Auto) 0.1, Eos # (Auto) 0.0, Baso # (Auto) 0.0, ESR 81 H, Sodium 131 L, Potassium 3.7, Chloride 99, Carbon Dioxide 23, Anion Gap 12.7, BUN 20 D, Creatinine 0.90, Estimated Creat Clear 90, Estimated GFR 86, Est GFR ( Amer) 103, Glucose 116 H, Calcium 8.3 L, Total Bilirubin 0.6, AST 167 H, ALT 118 H, Alkaline Phosphatase 54, Total Protein 6.4, Albumin 3.0 L D, Globulin 3.4 H, Albumin/Globulin Ratio 0.9 L I & O for Last 24 hours: Intake & Output 05/05/23 05/06/23 05/07/23 05/08/23 23:59 23:59 23:59 23:59 Intake Total 1544 / 1544 Output Total 200 / 500 300 / 300 Balance -200 / -500 1244 / 1244 Weight 82.752 kg 82.809 kg Constitutional Constitutional: no acute distress *Routine HEENT Exam Head: Present normocephalic Eye: Present EOMI and PERRL ENT: Present mucous membranes moist *Routine Neck Exam Neck: Present supple; Absent lymphadenopathy *Routine Respiratory Exam Respiratory: Present rales and rhonchi *Routine Cardiovascular Exam Cardiovascular: Present RRR *Routine Abdominal Exam Abdominal: Present soft and normoactive bowel sounds; Absent tenderness *Routine Extremities Exam Extremities: Absent cyanosis, clubbing or edema *Routine Skin Exam Skin: Present warm; Absent rash *Routine Neurological Exam Neurological: Present alert and oriented X3 Results Data Completed and Pending Labs on day of discharge: Labs from last 24
[2023-05-08 20:43] LABS: Lactic Acid 3.2 mmol/L (0.7-2.1)
--- NOTE | 2023-05-08 22:41 | PC.NURSE ---
1934 gave metoprolol IVP once for HR 130's - decreased to 120's. [id number] SOA/decreased 02 sat while on 3L NC Pt increased to 3.5L and still hold ing the mid/upper 80's, increased to 4L NC 2206 [facility]
--- NOTE | 2023-05-08 22:44 | PC.NURSE ---
Active Medications Acetaminophen (Acetaminophen 325mg Tab) 650 mg PO Q4HP PRN PRN Reason: Fever or Mild Pain (1-3) Stop: 06/06/23 20:32 Last Admin: 05/08/23 11:34 Dose: 650 mg Aspirin (Aspirin Ec 81mg Tablet) 81 mg PO DAILY CIARA Stop: 06/06/23 20:59 Last Admin: 05/08/23 08:55 Dose: 81 mg Atorvastatin Calcium (Atorvastatin 40mg Tablet) 40 mg PO HS CIARA Stop: 06/06/23 20:59 Last Admin: 05/08/23 20:31 Dose: 40 mg Clopidogrel Bisulfate (Clopidogrel 75mg Tab) 75 mg PO DAILY CIARA Stop: 06/07/23 08:59 Last Admin: 05/08/23 08:55 Dose: 75 mg Famotidine (Famotidine 20mg Tablet) 20 mg PO BID CIARA Stop: 06/07/23 10:29 Last Admin: 05/08/23 20:31 Dose: 20 mg Folic Acid (Folic Acid 1mg Tablet) 1 mg PO DAILY CIARA Stop: 06/07/23 08:59 Last Admin: 05/08/23 08:55 Dose: 1 mg Guaifenesin (Guaifenesin/Dextromethorphan 200mg/20mg 10ml Udc) 5 ml PO Q4HP PRN PRN Reason: Cough Stop: 06/07/23 10:14 Last Admin: 05/08/23 18:25 Dose: 5 ml Sodium Chloride (Sod Chlor 0.9% 1000ml Bag) 1,000 mls @ 50 mls/hr IV .Q20H CIARA Stop: 06/06/23 20:44 Last Admin: 05/07/23 21:16 Dose: 50 mls/hr Piperacillin Sod/Tazobactam (Sod 4.5 gm/ Sodium Chloride) 100 mls @ 200 mls/hr IV Q8H CIARA Stop: 05/18/23 01:59 Last Admin: 05/08/23 18:25 Dose: 200 mls/hr Vancomycin/PEG/NADA/Lysine/Water (Vancomycin 1.75gm/350ml (Peg) Premix) 1.75 gm in 350 mls @ 175 mls/hr IV Q18H CIARA Stop: 05/19/23 00:00 Irbesartan (Irbesartan 75mg Tablet) 75 mg PO DAILY CIARA Stop: 06/07/23 08:59 Last Admin: 05/08/23 08:55 Dose: 75 mg Levalbuterol HCl (Levalbuterol 0.63mg/3ml Neb) 0.63 mg IH Q4HP PRN PRN Reason: Shortness Of Breath Stop: 06/07/23 18:01 Last Admin: 05/08/23 18:27 Dose: 0.63 mg Metoprolol Succinate (Metoprolol Succinate Xl 25mg Tablet) 25 mg PO DAILY CIARA Stop: 06/07/23 08:59 Last Admin: 05/08/23 08:55 Dose: 25 mg Metoprolol Tartrate (Metoprolol Tartrate 5mg/5ml Vial) 2.5 mg IV Q6HP PRN PRN Reason: HR>130 Stop: 06/07/23 13:04 Last Admin: 05/08/23 19:36 Dose: 2.5 mg Morphine Sulfate (Morphine 2mg/Ml Syringe) 2 mg IV Q2HP PRN PRN Reason: Severe Pain (7-10) Stop: 06/06/23 20:32 Nicotine (Nicotine 21mg/24hr Patch) 21 mg TD DAILYP PRN PRN Reason: Nicotine Cravings Stop: 06/06/23 20:54 Ondansetron HCl (Ondansetron 4mg/2ml Vial) 4 mg IV Q8HP PRN PRN Reason: Nausea Stop: 06/06/23 20:32 Pantoprazole Sodium (Pantoprazole 40mg Tablet) 40 mg PO DAILY CIARA Stop: 06/06/23 20:44 Last Admin: 05/08/23 08:55 Dose: 40 mg Paroxetine HCl (Paroxetine 10mg Tablet) 10 mg PO HS [facility] Stop: 06/07/23 20:59 Last Admin: 05/08/23 20:35 Dose: Not Given Propylthiouracil (Propylthiouracil 50mg Tablet) 50 mg PO DAILY CIARA Stop: 06/07/23 08:59 Last Admin: 05/08/23 08:54 Dose: 50 mg Sodium Chloride (Sodium Chloride 3% 15ml Neb) 3 ml IH ONCE PRN PRN Reason: INDUCE SPUTUM COLLECTION Stop: 06/06/23 18:29 Sodium Chloride (Sodium Chloride 0.9% 10ml Flush Syringe) 10 ml IV NEEDED PRN PRN Reason: Maintain IV Site Stop: 06/06/23 20:32 Trazodone HCl (Trazodone 50mg Tablet) 50 mg PO HS CIARA Stop: 06/07/23 20:59 Last Admin: 05/08/23 20:31 Dose: 50 mg
[2023-05-09 00:09] LABS: Reflex Lactic Add Lactic Reflex
== END 2023-05-08 23:00 | disposition short-term general hospital (02) | DRG 195 ==
LOC: ER 20:09 → 2ND 20:13
PROVIDERS: Nurse Practitioner Family; Admitting Provider Internal Medicine; Emergency Provider Emergency Medicine; PCP Family Medicine; Visit Provider Internal Medicine
DX: J18.9 Pneumonia, unspecified organism (principal); K31.89 Other diseases of stomach and duodenum; K44.9 Diaphragmatic hernia without obstruction or gangrene; I25.10 Atherosclerotic heart disease of native coronary artery without angina pectoris; J44.9 Chronic obstructive pulmonary disease, unspecified; Z95.5 Presence of coronary angioplasty implant and graft; E78.5 Hyperlipidemia, unspecified; I10 Essential (primary) hypertension; F17.210 Nicotine dependence, cigarettes, uncomplicated; Z79.899 Other long term (current) drug therapy; Z79.01 Long term (current) use of anticoagulants; R59.0 Localized enlarged lymph nodes
CPT/HCPCS: 36415; 71045; 71046; 71275; 74176; 80053; 82803; 83605; 84436; 84443; 84484; 85025; 85378; 85651; 86140; 87040; 87070; 87205; 87636; 93005; 94640; 99285; J2543; J3370; Q9967